=== PATIENT | female | born 1950 | race Caucasian/White ===

== ENCOUNTER 2022-03-19 11:36 | Outpatient (CLI) | payer MEDICARE ==
[2022-03-19 23:32] LABS: SARS-CoV-2 PCR by NAA Not Detected (NotDetected)
== END 2022-03-19 11:37 | disposition home or self-care (01) ==
LOC: CSHLAB 11:36
PROVIDERS: ATTEND Neurological Surgery
DX: Z20.822 Contact with and (suspected) exposure to COVID-19 (principal); M54.16 Radiculopathy, lumbar region
CPT/HCPCS: U0003; U0005